=== PATIENT | female | born 1975 | race Asian ===

== ENCOUNTER 2018-05-05 11:57 | Inpatient (IN) | payer OTHER ==
[~2018-05-05] VITALS: Ht 154.9 cm; Wt 77.7 kg
[~2018-05-05 11:57] MED LIST: PREN-39 PO; PREN1TAB74 PO
[2018-05-05 13:23] VITALS: Ht 154.9 cm; Wt 77.7 kg
[2018-05-05 13:24] VITALS: BP 105/58; PULSE 96; RESP 18
--- NOTE | 2018-05-05 15:29 | PN ---
Triage Information Date/Time Reason for visit: Weeks of Gestation 37 weeks and 3 days /Para 2 para 1 Diabetes: gestational Diabetes management: diet controlled Hypertention: none Objective Vital Signs Date Temp Pulse Resp B/P (MAP) Pulse Ox O2 O2 Flow FiO2 Time Delivery Rate 05/05/18 98.6 96 18 105/58 97 13:24 (74) Heart Rate: 140's Heart Rate Comments Reactive Results/Medications Imaging Results EFW today was 4300 g +1 Biophysical was 8 out a Disposition: Discharge Assessment/Plan Followed by biweekly antepartum test LOKI MORGAN MD May 05, 2018 15:29
[2018-05-05] MEDS ORDERED: CARBOPROST 250 MCG INJ IM PRN ×2 (16:00→22:00)
[2018-05-05] MEDS ORDERED: MISOPROSTOL 200 MCG TAB PR PRN ×2 (16:00→22:00)
[2018-05-05] MEDS ORDERED: OXYTOCIN 30 UNITS/LR 500 ML IV PRN ×2 (16:00→22:00)
[2018-05-05] MEDS ORDERED: METHYLERGONOVINE 0.2 MG INJ IM PRN ×2 (16:00→22:00)
[2018-05-05] MEDS ORDERED: CEFAZOLIN 2 GM/50 ML (PMX) 50 ML IVPB SCH (16:00)
[2018-05-05] MEDS ORDERED: LACTATED RINGER'S 1,000 ML IV SCH ×2 (16:01→22:00)
[2018-05-05] MEDS ORDERED: OXYTOCIN 30 UNITS/LR 500 ML IV SCH (16:30)
--- NOTE | 2018-05-05 16:33 | PREAC ---
Date/Time of Note Date/Time of Note DATE: 05/05/18 TIME: 16:32 Anesthesia Eval and Record Evaluation Time Pre-Procedure Interview DATE: 05/05/18 TIME: 16:32 Age 42 Sex female NPO: 8 hrs Preoperative diagnosis iup at 37 weeks Planned procedure repeat c section Past Medical History Past Medical History: Includes GI: Obesity Heme: Anemia Surgery & Anesthesia Issues No known issue Meds Anticoagulation: No Beta Eddie within 24 hr: No Reason Beta Eddie not given: Pt. not on B-Eddie Reported Medications Vits W-Ca,Fe,Fa(<1MG) ( Vitamins) 1 Tab Tablet, 1 TAB PO 04/23/14 Vit-Iron Fumarate-FA ( Vitamin Formula) 1 Tab Tablet, 1 TAB PO DAILY, TAB 03/27/14 Current Medications Cefazolin Sodium/ Dextrose 50 ml @ 100 mls/hr ONCE IVPB Last administered on 05/05/18at 16:28; Admin Dose 100 MLS/HR; Start 05/05/18 at 16:00 Oxytocin/Lactated Ringer's 500 ml @ 0 mls/hr ONCE PRN IV .VAGINAL BLEEDING; Start 05/05/18 at 16:00 Methylergonovine Maleate (Methergine) 0.2 mg ONCE PRN IM .VAGINAL BLEEDING; Start 05/05/18 at 16:00 Carboprost Tromethamine (Hemabate) 250 mcg ONCE PRN IM .VAGINAL BLEEDING; Start 05/05/18 at 16:00 Misoprostol (Cytotec) 1,000 mcg ONCE PRN MS .VAGINAL BLEEDING; Start 05/05/18 at 16:00 Lactated Ringer's 1,000 ml @ 125 mls/hr Q8H IV Last administered on 05/05/18at 16:21; Admin Dose 125 MLS/HR; Start 05/05/18 at 16:01 Oxytocin/Lactated Ringer's 500 ml @ 125 mls/hr POST IV ; Start 05/05/18 at 16:30 Meds reviewed: Yes Allergies Coded Allergies: No Known Drug Allergy (Unverified Allergy, Unknown, 03/27/14) Allergies Reviewed: Yes Labs/Studies Labs Reviewed: Reviewed by anesthesiologist test: Positive Pre-procedure Exam Last vitals Vital Signs Date Temp Pulse Resp B/P (MAP) Pulse Ox O2 O2 Flow FiO2 Time Delivery Rate 05/05/18 98.6 96 18 105/58 97 13:24 (74) Airway: Adequate mouth opening, Adequate thyromental dist Mallampati: Mallampati I Teeth: Normal Lung: Normal Heart: Normal ASA Physical Status ASA physical status: 2 Emergency: None Planned Anesthetic Neuraxial: Spinal Planned Pain Management Sub-arachniod narcotics, Parenteral pain med Pre-operative Attestations Prior to commencing anesthesia and surgery, the patient was re-evaluated, there was verification of: *The patient's identity *The results of appropriate recent lab work and preoperative vital signs *The above evaluation not changing prior to induction *Anesthetic plan, risk benefits, alternative and complications discussed with patient/family; questions answered; patient/family understands, accepts and wishes to proceed. ROSALINA MOJICA May 05, 2018 16:33
[2018-05-05] MEDS ORDERED: morphine SULFATE/PF (10 MG/10 ML) INJ ONE (16:38)
[2018-05-05] MEDS ORDERED: ONDANSETRON 4 MG INJ ONE (16:38)
[2018-05-05] MEDS ORDERED: DEXAMETHASONE 4 MG/ML 1 ML INJ ONE (16:38)
[2018-05-05] MEDS ORDERED: FENTAnyl 50 MCG/ML VIAL ONE (16:38)
[2018-05-05] MEDS ORDERED: PHENYLephrine (100 MCG/ML) 10ML SYG ONE (16:59)
--- NOTE | 2018-05-05 18:15 | HP ---
Date/Time of Note Date/Time of Note DATE: 05/05/18 TIME: 18:11 OB - History Hx of Present Free Text/Dictation 42-year-old female 2 para 1 at 37 weeks and 1 day admitted from antepartum testing unit of [facility] because of persistent uterine contractions every 2-3-minute Last Menstrual Period: Aug 17, 2017 Estimated Due Date: May 24, 2018 : 2 Para: 1 Care: Good Care Ultrasounds: Normal mid trimester US Obstetrical Complications: Gestational Diabetes, Other (Advanced maternal age) Medical Complications: Other (His section) Past Family/Social History * Past Medical, Surgical, Family and Obstetric Histories reviewed from chart. Blood Type: O+ Rubella: immune RPR/VDRL: Negative GBS Status: Positive HBsAG: Negative OB Admission Exam Vital Signs Vital Signs Vital Signs Date Temp Pulse Resp B/P (MAP) Pulse Ox O2 O2 Flow FiO2 Time Delivery Rate 05/05/18 98.6 96 18 105/58 97 13:24 (74) Physical Exam HEENT: WNL Heart: Rhythm Normal Lungs: Clear, Equal Abdomen: WNL Extremities: Normal Reflexes: Normal Cervical Dilatation: Fingertip Effacement: 25% Station: Ballotable Membranes: Intact Heart Rate: 140's Accelerations: Accelerations Present Decelerations: No Decelerations Varibility: Marked Contractions on Admission: < 5 Minutes Apart Date/Time Contractions Began: ? Frequency of Contractions: ? Duration: ? Intensity: Mild Last 72 hours Lab Results CBC & BMP 05/05/18 16:00 OB Assessment/Plan Reason for admission: section Other Assessment: 37 weeks and 2 days gestation Breech presentation diagnosed in antepartum testing unit today Gestational diabetes class A-II Previous section x1 Other plan: Repeat section LOKI MORGAN MD May 05, 2018 18:15
[2018-05-05] MEDS ORDERED: KETOROLAC 60 MG INJ IM STA (18:22)
--- NOTE | 2018-05-05 18:22 | OPR ---
Operative Report Planned Procedure Free Text/Dictation 42-year-old female with persistent uterine contractions at 37 weeks and 2 days Procedure date May 05, 2018 Procedure(s) Repeat delivery Performed by see signature line Display Mechanic: LIZZETTE SOLIMAN MD Anesthesiologist: ROSALINA MOJICA Pre-procedure diagnosis 37 weeks plus gestation Previous section x1 Labor contractions Breech presentation Class A-II diabetes [id number] Anesthesia Type: Outnt8c spinal Post-Procedure Post-procedure diagnosis Status post repeat section Low vertical uterine incision was placed because of the back down transverse lie Large bowel adhesion to left adnexa Findings Live baby with back down transverse lie Normal-appearing right and left fallopian tubes and ovaries Large bowel adhesion to left adnexa Estimated Blood Loss: other (800 mL) Specimen(s) none Grafts/Implant(s) none Complication(s) none Pt Condition post procedure: stable Disposition: PACU Procedure Description Under satisfactory anaesthesia a Pfannenstiel incision was made two fingerbreadth above and parallel to the symphysis of pubis around the previous scar and previous scar was removed Incision was extended laterally to the border of the Recti muscles on either sides. Incision was carried down with sharp and blunt dissection until fascia was reached. Anterior Recti muscle fascia was incised in mid portion and incisio n extended laterally to the border of skin incision. Fascia was mobilized from muscle superiorly and Recti muscles were from midline using sharp and blunt dissection. Peritoneum was visualized; Avoiding bowel and bladder it was incised . Incision was extended superiorly and inferiorly. Bladder blade was placed. Posterior peritoneum covering the lower segment of the uterus and lower segment of the uterus were incised.Low transverse uterine incision was made on lower segment of the uterus. Incision extended laterally to the border of Round Lig. on either sides. Difficulty encountered with delivering the baby because the baby appeared to be in transverse lie back down. This situation could not be resolved. Until the small vertical uterus was placed on a body of the uterus toward the fundus and baby was delivered via total breech extraction without difficulty. Amniotic fluid appeared clear. Cord blood was obtained and cord had 3 vessels . Placenta was delivered spontaneously and appeared intact and complete. Intrauterine cavity was rubbed with a laparotomy sponge. Uterine incision was closed in 2 layers using running stitches of No1 Monocryl. Hemostasis appeared secure. Ovaries and Fallopian tubes were within normal limits. Large bowel adhesion to left adnexa was also observed Announcing needle, lap sponge and instrument count to be correct abdomen was closed in layers as follows: Peritoneum and Recti muscles with running stitches of 2-0 Vicryl. Fascia with running stitch of No 1 PDS. Subcutaneous tissue with running stitches of 2-0 Monocryl and skin was closed using leslie. Patient tolerated the procedure well and was transferred to [facility] in good condition. LOKI MORGAN MD May 05, 2018 18:22
[2018-05-05] MEDS ORDERED: AZITHROMYCIN 500MG/NS (PMX) 250 ML IVPB ONE (18:30)
[2018-05-05] MEDS ORDERED: KETOROLAC 30 MG INJ IM STA (18:32)
--- NOTE | 2018-05-05 18:33 | PAC ---
Date/Time of Note Date/Time of Note DATE: 05/05/18 TIME: 18:33 Post-Anesthesia Notes Post-Anesthesia Note Last documented vital signs Vital Signs Date Temp Pulse Resp B/P (MAP) Pulse Ox O2 O2 Flow FiO2 Time Delivery Rate 05/05/18 98.6 96 18 105/58 97 1833 (74) Activity: WNL Respiratory function: WNL Cardiovascular function: WNL Mental status: Baseline Pain reasonably controlled: Yes Hydration appropriate: Yes Nausea/Vomiting absent: Yes ROSALINA MOJICA May 05, 2018 18:33
[2018-05-05] MEDS ORDERED: NALOXONE (0.4 MG/ML) INJ IV PRN (19:00)
[2018-05-05] MEDS ORDERED: ONDANSETRON 4 MG INJ IV PRN (19:00)
[2018-05-05] MEDS ORDERED: HYDROmorphONE 0.5 MG/0.5 ML SYG IV PRN ×2 (19:00)
[2018-05-05] MEDS ORDERED: ZOLPIDEM 5 MG TAB PO PRN (19:00)
[2018-05-05] MEDS ORDERED: DIPHENHYDRAMINE 50 MG INJ IV PRN (19:00)
[2018-05-05 21:30] VITALS: BP 106/70; PULSE 87; RESP 18
[2018-05-05] MEDS ORDERED: NA PHOSPHATE/BIPHOS 133 ML ENEMA PR PRN (22:00)
[2018-05-05] MEDS ORDERED: LANOLIN HPA 1 PKT TOP PRN (22:00)
[2018-05-05] MEDS: CEFAZOLIN 2 GM/50 ML (PMX) 50 ML IVPB SCH (22:27)
[2018-05-05] MEDS: CLINDAMYCIN 300 MG CAP PO SCH (23:34)
[2018-05-06 00:30] VITALS: BP 124/75; PULSE 94; RESP 18
[2018-05-06 04:20] VITALS: BP 106/70; PULSE 94; RESP 18
[2018-05-06] MEDS: CLINDAMYCIN 300 MG CAP PO SCH ×4 (06:11→23:56)
[2018-05-06] MEDS: CEFAZOLIN 2 GM/50 ML (PMX) 50 ML IVPB SCH ×2 (06:11→13:34)
[2018-05-06 07:20] VITALS: BP 98/56; PULSE 103; RESP 16
[2018-05-06] MEDS: ACCU-CHEK XX SCH ×4 (07:30→20:57)
[2018-05-06] MEDS: metFORMIN (XR) 500 MG TAB PO SCH ×2 (09:09→20:57)
[2018-05-06] MEDS: SENNA/DOCUSATE NA (8.6MG/50MG) TAB PO SCH ×2 (09:10→20:57)
[2018-05-06] MEDS: LACTATED RINGER'S 1,000 ML IV SCH ×2 (09:17→17:30)
[2018-05-06] MEDS ORDERED: BISACODYL 10 MG SUPP PR ONE (10:30)
[2018-05-06] MEDS: KETOROLAC 30 MG INJ IV PRN ×2 (11:29→17:20)
--- NOTE | 2018-05-06 15:35 | PN ---
Date/Time of Note Date/Time of Note DATE: 05/06/18 TIME: 15:10 Assessment/Plan VTE Prophylaxis VTE Prophylaxis Intervention: ambulation Lines/Catheters IV Catheter Type (from Nrsg): Peripheral IV Assessment/Plan Assessment/Plan Status post postop day 1 Advance diet and ambulate Repeat CBC Subjective 24 Hr Interval Summary No bowel movement but passing flatus Constitutional: no complaints, improved, ambulates, BM, flatus, urine output Pain Control: well controlled Exam/Review of Systems Vital Signs Vitals Vital Signs Date Temp Pulse Resp B/P (MAP) Pulse Ox O2 O2 Flow FiO2 Time Delivery Rate 05/06/18 97.8 103 16 98/56 (70) 98 Room Air 07:20 Intake and Output 05/05/18 05/05/18 05/06/18 1515:00 23:00 07:00 IntakeIntake Total 1050 ml 375 ml OutputOutput Total 1206 ml 350 ml BalanceBalance -156 ml 25 ml Exam Free Text/Dictation Abdomen is soft and not distended Bowel sounds are present Incision is covered Constitutional: alert, oriented, well developed Psych: no complaints, nl mood/affect Head: normocephalic, atraumatic Eyes: nl conjunctiva, EOMI, nl lids, nl sclera ENMT: nl external ears & nose, nl lips & teeth, nl nasal mucosa & septum, mucosa pink and moist Neck: supple, non-tender Respiratory: clear to auscultation, normal air movement Cardiovascular: regular rate and rhythm, nl pulses Gastrointestinal: soft, nl liver, spleen, non-tender Musculoskeletal: nl extremities to inspection, nl gait and stance Extremities: normal pulses Neurological: HIDE CURER II-XII intact, nl mental status, nl speech, nl strength Skin: nl turgor, rash or lesions Lymph: nl lymph nodes Results Result Diagram: 05/06/18 0620 LOKI MORGAN MD May 06, 2018 15:28
[2018-05-06 16:10] VITALS: BP 105/59; PULSE 99; RESP 18
[2018-05-06] MEDS ORDERED: OXYCODONE/ACETAMINOPHEN (5/325) TAB PO PRN (19:00)
[2018-05-06 20:00] VITALS: BP 93/51; PULSE 98; RESP 17
[2018-05-06] MEDS: IBUPROFEN 800 MG TAB PO SCH (21:52)
[2018-05-07 04:26] VITALS: BP 98/54; PULSE 100; RESP 18
[2018-05-07] MEDS: IBUPROFEN 800 MG TAB PO SCH ×3 (05:39→21:57)
[2018-05-07] MEDS: CLINDAMYCIN 300 MG CAP PO SCH ×3 (05:39→17:29)
[2018-05-07] MEDS: ACCU-CHEK XX SCH ×3 (07:30→13:50)
[2018-05-07 07:45] VITALS: BP 106/64; PULSE 97; RESP 18
[2018-05-07] MEDS: SENNA/DOCUSATE NA (8.6MG/50MG) TAB PO SCH ×2 (08:57→21:13)
[2018-05-07] MEDS: metFORMIN (XR) 500 MG TAB PO SCH ×2 (08:57→21:13)
[2018-05-07] MEDS: HYDROCODONE/APAP (5/325) TAB PO PRN ×2 (11:39→15:52)
--- NOTE | 2018-05-07 12:15 | OPPN ---
Date/Time of Note Date/Time of Note DATE: 05/07/18 TIME: 12:14 Anesthesia Follow up Anesthesia Follow up Last documented vital signs Vital Signs Date Temp Pulse Resp B/P (MAP) Pulse Ox O2 O2 Flow FiO2 Time Delivery Rate 05/07/18 97.6 97 18 106/64 Room Air 10:45 (78) 05/06/18 98 16:10 Respiratory function: WNL Cardiovascular function: WNL Comments satisfactory pain management with intrathecal duramorph without any complications. ROSALINA MOJICA May 07, 2018 12:15
--- NOTE | 2018-05-07 12:43 | DS ---
Date/Time of Note Date/Time of Note home today or next day DATE: 05/07/18 TIME: 12:40 Obstetrical Discharge Record Final Diagnosis Final Diagnosis: Term delivered Other Final Diagnosis S/P C/S Section Section: Repeat (transverse lie) Complications Gestational Diabetes Condition on Discharge Physical Assessment Last Vitals: See nurses notes Voiding: Yes Bowel Movement: Yes Breast: Soft, non-tender, Filling Fundus: Firm Abdomen and Incision: soft BS + incision is without induration and or erythema Episiotomy: not applicable Calf Tenderness: No Patient Condition: Good LOKI MORGAN MD May 07, 2018 12:43
--- NOTE | 2018-05-07 12:47 | DS ---
Date/Time of Note Date/Time of Note DATE: 05/07/18 TIME: 12:43 Discharge Summary Admission/Discharge Info Admit Date/Time May 05, 2018 at 15:30 Discharge Date/Time 05/08/2018 or 05/07/2018 Discharge Diagnosis S/P C/S with low vertical uterine scar Patient Condition: Good Procedures repeat C/S with low verical uterine scar Hx of Present Illness 42 y/o female had repeat C/S Hospital Course patient had uncomplicated hospitalization course was told she may need to have C/S at 37-38 weeks for all future pregnancies Home Meds Reported Medications Vits W-Ca,Fe,Fa(<1MG) ( Vitamins) 1 Tab Tablet, 1 TAB PO 04/23/14 Vit-Iron Fumarate-FA ( Vitamin Formula) 1 Tab Tablet, 1 TAB PO DAILY, TAB 03/27/14 Follow-up Plan 2-3 days in clinic for staple removal Primary Care Provider Not On Staff Doctor Time spent on discharge: > 30 minutes Pending Labs Laboratory Tests Test 05/06/18 15:07 05/06/18 20:56 05/07/18 07:04 05/07/18 08:02 Bedside 119 103 86 Glucose mg/dL (70-220) mg/dL (70-220) mg/dL (70-220) White Blood 11.0 Count 10^3/ul (4.8-1 0.8) Red Blood 2.89 Count 10^6/ul (4.20- 5.40) Hemoglobin 8.6 g/dl (12.0-16. 0) Hematocrit 26.9 % (37.0-47.0) Mean 93.1 Corpuscular fl (82.0-101.0 Volume ) Mean 29.8 Corpuscular pg (29.0-33.0) Hemoglobin Mean 32.0 Corpuscular g/dl (32.0-37. Hemoglobin Conc 0) ent Red Cell 14.6 Distribution % (11.5-14.5) Width Platelet Count 227 10^3/UL (140-4 15) Mean Platelet 10.1 Volume fl (7.4-10.4) Immature 0.900 Granulocytes % % (0.001-0.429 ) Neutrophils % 78.8 % (39.0-77.0) Lymphocytes % 13.2 % (15.0-51.0) Monocytes % 5.3 % (0.0-11.0) Eosinophils % 1.5 % (0.0-7.0) Basophils % 0.3 % (0.0-2.0) Nucleated Red 0.0 Blood Cells % /100WBC (0.0-0 .0) Immature 0.100 Granulocytes # 10^3/ul (0.0-0 .031) Neutrophils # 8.7 10^3/ul (1.6-7 .5) Lymphocytes # 1.5 10^3/ul (0.8-2 .9) Monocytes # 0.6 10^3/ul (0.3-0 .9) Eosinophils # 0.2 10^3/ul (0.0-0 .5) Basophils # 0.0 10^3/ul (0.0-0 .1) Nucleated Red 0.0 Blood Cells # 10^3/ul (0.0-0 .0) Test 05/07/18 10:45 Bedside 115 Glucose mg/dL (70-220) LOKI MORGAN MD May 07, 2018 12:47
--- NOTE | 2018-05-07 12:50 | PD.PPDC ---
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 Provider Information Physician Information 42 y/o female had repeat C/S Diagnosis [id number] Final Diagnosis: Lzzfl2a type II DM and S/P C/S Condition Qukid0Ak Patient Condition: Sbdvw0b Good Diet Rinsr8Eu Diet: Ijtiz5m Special Diet (2000 evelin ADA) Activity/Restrictions Ecfhy0Qn Activity: Kohjp5k July Shower Kaewr1Jx Restrictions: Jxtek4f No Exercising No Lifting Nothing in the Vagina Otkyr8Mh Return to Work or School: Ywrnd1r July 10, 2018 Wound/Drain Care Instructions Gkwye3Hf Wound/Drain Care Instructions: Dhmjz7k Keep clean and dry Follow-up Follow-up with Physician: 2, 3, Day/Days (in clinic for staple removal) Return to clinic for [id number] RN ONCOLOGY CLINICAL Instructions: Gwqpy6s Fever greater than 101 Chills Whuwu1Tm OB Instructions: Kiawy7d Breast Tenderness Depression Comment: pelvic rest and no hard activity x 2 months Pupfy3Wr Surgical Instructions: Cnish8w Incisional Drainage Incisional Redness LOKI MORGAN MD May 07, 2018 12:49
[2018-05-07] MEDS ORDERED: IBUP800T48 PO (12:51)
[2018-05-07] MEDS ORDERED: METF500T3 PO (12:51)
[2018-05-07 16:00] VITALS: BP 94/61; PULSE 93; RESP 18
[2018-05-07 20:15] VITALS: BP 112/64; PULSE 90; RESP 18
--- NOTE | 2018-05-07 20:25 | NSTRPT ---
NST Information Datetime Report Generated by CPN: 05/07/2018 20:24 Datetime: 05/05/2018 09:40 NST Information EGA: 37.2 Test Number: 10 Time on Monitor: 05/05/2018 10:20 Time off Monitor: 05/05/2018 11:05 NST Duration (Min): 45 Reason for NST: Diabetes Mellitus; Other Reason for NST Other: A2DM Test and Monitor Explained: Monitor Explained; Test Explained; Verbalized Understanding Pulse: 107 Resp: 18 SBP: 107 DBP: 69 Test Evaluation NST Interventions: Reposition Patient; Acoustic Stimulation NST Interventions Other: 1038 REPOSITION TO RIGHT SIDE 1042 FAS WITHOUT ACCEL FOLLOWING FAS Contraction Frequency: IRRITABILITY/20-60/MILD/PAIN LEVEL 0 FHR Baseline : 140 Variability: Minimal - <=5bpm Accelerations: 15X15 Decelerations: None FHR Category: Category II NST Results: Reactive Provider Notified: GDM CONSULT by Dr Syed-recommends pt go to hospital Comments: PT TO U/S SU 17.1 CM BREECH EFW 4300GM, 9# 8 OZ EFW = 99% AC = 98% (38.2 CM) FBS 83 PERIODS OF MINIMAL VARIABILITY [id number] FOLLOWED BY MODERATE VARIABILTY DFr Yahaira recommends pt go to the hospital for extended monitoring. records _ preliminary US report sent to triage. Report to leesa Vázquez RN, charge nurse. Repeat pulse 104, 108, 114, 117 Electronically Signed By E-Signature: with User ID: [id number] Datetime: 05/02/2018 13:04 NST Information EGA: 36.6 Test Number: 9 Time on Monitor: 05/02/2018 13:29 Time off Monitor: 05/02/2018 13:59 NST Duration (Min): 30 Reason for NST: Diabetes Mellitus; Other Reason for NST Other: A2DM Test and Monitor Explained: Monitor Explained; Test Explained; Verbalized Understanding Pulse: 95 Resp: 18 SBP: 106 DBP: 61 Test Evaluation NST Interventions: None Patient States Movement: Present Contraction Frequency: IRRITABILITY/25-50/MILD;pain level 0 FHR Baseline : 145 Variability: Moderate 6-25bpm Accelerations: 15X15 Decelerations: None FHR Category: Category I NST Results: Reactive Comments: To u/s SU 12.8 CM /RT TRANSVERSE FBS 102 Electronically Signed By E-Signature: with User ID: [id number] Datetime: 04/27/2018 14:20 NST Information EGA: 36.1 NST Duration (Min): 27 Datetime: 04/25/2018 13:08 NST Information EGA: 35.6 NST Duration (Min): 37 Datetime: 04/21/2018 13:29 NST Information EGA: 35.2 NST Duration (Min): 29 Datetime: 04/18/2018 13:07 NST Information EGA: 34.6 NST Duration (Min): 26 Datetime: 04/14/2018 13:15 NST Information EGA: 34.2 NST Duration (Min): 36 Datetime: 04/11/2018 14:12 NST Information EGA: 33.6 NST Duration (Min): 27 Datetime: 04/07/2018 13:19 NST Information EGA: 33.2 NST Duration (Min): 31 Datetime: 03/30/2018 10:45 NST Information EGA: 32.1 NST Duration (Min): 30
[2018-05-08] MEDS: CLINDAMYCIN 300 MG CAP PO SCH ×3 (00:27→12:44)
[2018-05-08 03:53] VITALS: BP 99/56; PULSE 95; RESP 17
[2018-05-08] MEDS: IBUPROFEN 800 MG TAB PO SCH (05:39)
[2018-05-08 08:00] VITALS: BP 103/67; PULSE 109
[2018-05-08] MEDS: metFORMIN (XR) 500 MG TAB PO SCH (08:59)
[2018-05-08] MEDS: SENNA/DOCUSATE NA (8.6MG/50MG) TAB PO SCH (09:00)
[2018-05-08] MEDS ORDERED: DIPHTH/TET/ACEL PERTUSS (ADULT) 0.5 ML VIAL IM* ONE (09:00)
[2018-05-08] MEDS: HYDROCODONE/APAP (5/325) TAB PO PRN (12:45)
== END 2018-05-08 15:05 | disposition home or self-care (01) | DRG 788 ==
LOC: OBT 11:57 → L-D 11:58 → OBT 15:30 → L-D 15:30 → PP1 21:03
PROVIDERS: ADMIT Obstetrics & Gynecology; ATTEND Obstetrics & Gynecology
PROC: 10D00Z1 Extraction of Products of Conception, Low, Open Approach (ICD-10-PCS; principal; 2018-05-05 15:45)
DX: O34.211 Maternal care for low transverse scar from previous cesarean delivery (principal); O24.429 Gestational diabetes mellitus in childbirth, unspecified control; O32.1XX0 Maternal care for breech presentation, not applicable or unspecified; Z3A.37 37 weeks gestation of pregnancy; Z37.0 Single live birth
CPT/HCPCS: 82962; 85025; 85610; 85730; 86592; 86850; 86870; 86900; 86901; 87340; 90715; 99464; G0463; J0456; J0690; J1100; J1885; J2274; J2370; J2405; J2590; J3010; J7120